=== PATIENT | female | born 1985 | race African-American/Black ===

== ENCOUNTER 2017-08-30 08:39 | Day surgery (SDC) | payer OTHER ==
[2017-08-29 12:47] VITALS: BMI 29.7
[2017-08-30] MEDS ORDERED: ceFAZolin SODIUM 1 GM VIAL ONE (10:06)
[2017-08-30] MEDS ORDERED: MIDAZOLAM HCL 2 MG/2 ML SINGLE DOSE VIAL ONE ×2 (10:06→11:09)
[2017-08-30] MEDS ORDERED: PROPOFOL 20 ML ONE ×2 (10:06)
[2017-08-30] MEDS ORDERED: LIDOCAINE HCL/PF 2% SDV 5ML VIAL ONE (10:06)
[2017-08-30] MEDS ORDERED: ONDANSETRON 4 MG/2 ML VIAL IVPUSH PRN (10:24)
[2017-08-30] MEDS ORDERED: oxyCODONE HCL 5 MG TABLET PO PRN (10:24)
[2017-08-30] MEDS ORDERED: IBUPROFEN 800 MG/8 ML IJ IVPB PRN (10:24)
[2017-08-30] MEDS ORDERED: LACTATED RINGERS SOLUTION 1,000 ML IV SCH (10:30)
[2017-08-30] MEDS ORDERED: BUPIVACAINE HCL/PF 0.5% (5MG/ML) 10 ML VIAL ONE ×2 (10:52→12:03)
[2017-08-30] MEDS ORDERED: LIDOCAINE HCL 1%, 10 MG/ML (20ML VIAL) ONE (10:52)
[2017-08-30] MEDS ORDERED: ceFAZolin SODIUM 1 GM VIAL IVPB ONE (11:14)
[2017-08-30] MEDS ORDERED: LIDOCAINE HCL 1%, 10 MG/ML (20ML VIAL) NR ONE (11:23)
[2017-08-30] MEDS ORDERED: BUPIVACAINE HCL/PF 0.5% (5MG/ML) 10 ML VIAL IJ ONE ×2 (11:23→12:01)
[2017-08-30] MEDS ORDERED: DEXAMETHASONE SOD PHOSPHATE 4 MG/1 ML VIAL IM ONE (12:01)
[2017-08-30] MEDS ORDERED: TRIAMCINOLONE ACET 40MG/1ML VIAL ONE (12:03)
[2017-08-30] MEDS ORDERED: DEXAMETHASONE SOD PHOSPHATE 4 MG/1 ML VIAL ONE (12:03)
[2017-08-30 13:08] VITALS: TEMP 98.3
--- NOTE | 2017-08-30 13:24 | OP ---
DATE OF OPERATION: DATE OF DICTATION: 08/30/2017 PREOPERATIVE DIAGNOSIS: Left foot painful hammertoe, 4th and 5th digits. POSTOPERATIVE DIAGNOSIS: Left foot painful hammertoe, 4th and 5th digits. OPERATION: Arthroplasty of the left foot 4th digit and 5th digit at the proximal interphalangeal joints and postoperative injection. ANESTHESIA: Local with IV sedation. SURGEON: Miya Guido DPM ASSISTANTS: and , PGY3 HEMOSTASIS: Pneumatic ankle tourniquet, 29 minutes. ESTIMATED BLOOD LOSS: Less than 3 mL. MATERIAL: Vicryl 3-0 and 4-0 nylon. PATHOLOGY: Bone and soft tissues, left foot. PREOPERATIVE INJECTION: A mix of 1:1 of 1% lidocaine plain and 0.5 Marcaine plain, 12 mL. POSTOPERATIVE INJECTION: A mix of 4:1 of 0.5% Marcaine and 4 mg of dexamethasone, 7 mL. OPERATIVE PROCEDURE: The patient was brought to the operating room and placed on the operating table in the supine position. A pneumatic ankle tourniquet was then placed on the patient's left ankle. Following IV sedation, local anesthesia was obtained utilizing 12 mL of a 1:1 mixture of 1% lidocaine plain and 0.5% Marcaine plain. The foot was then scrubbed, prepped and draped in the usual aseptic manner. An Esmarch bandage was then utilized to exsanguinate the patient's left foot and the tourniquet was inflated. Attention was then directed to the 4th digit where approximately a 3-cm curvilinear longitudinal incision was made over the lateral aspect of the proximal interphalangeal joint of the 4th digit and the incision was then deepened through the subcutaneous tissue with care to retract all neurovascular structures and all bleeders were cauterized and ligated. Transverse tenotomy and capsulotomy were performed to the proximal interphalangeal joint of the 4th digit. The head of the proximal interphalangeal joint was then freed from its soft tissue attachment. A sagittal saw was then used to cut the head of the proximal phalanx and then passed from the operating room table. Attention was then directed to the 5th digit where approximately a 2-cm curvilinear oblique incision was made from the proximal lateral to the distal medial over the dorsal aspect of the proximal interphalangeal joint of the 5th digit. The incision was then deepened through the subcutaneous tissue with care to retract all neurovascular structures and all bleeders were cauterized and ligated. Transverse tenotomy and capsulotomy were performed to the proximal interphalangeal joint of the 5th digit. The head of the proximal phalanx was then freed of its soft tissue attachment. A sagittal saw was then used to cut the head of the proximal phalanx and then passed from the operating room table. The surgical sites were then flushed with a copious amount of sterile saline and the extensor tendon of the 4th digit and the 5th digit and the subcutaneous tissue were then approximated with 3-0 Vicryl. Skin was approximated with 4-0 nylon. Upon the completion of the procedure, a total of 7 mL of the mix 4:1 of 0.5% Marcaine plain and 4 mg of dexamethasone was infiltrated around the surgical site. The incision was dressed with Betadine-soaked Adaptic and covered with a sterile compressive dressing such as 4 x 4 and Kerlix. The tourniquet was then deflated. Immediate hyperemia returned to all digits. The foot was then Navarro wrapped. The patient tolerated the procedure well and was transferred to the recovery room with all vital signs stable and vascular status intact to the feet. Following postoperative monitoring, the patient will be discharged and given instruction and prescriptions which were discussed prior to the surgery. SAMMY [id number]
[2017-08-30 14:06] VITALS: BP 133/79; PULSE 96
--- NOTE | 2017-08-31 15:39 | PATH ---
Surgical Pathology Report Patient Name: LAKESHA CRANDALL Med. Rec. #: [id number] /Age/Gender: 1985 (Age: 32) / F Account: [id number] Location: [facility] Taken: 08/30/2017 Received: 08/30/2017 Reported: 08/31/2017 Physicians: Miya Guido DPM Specimen(s) Received A: SKIN OF 4TH /5TH TOES LEFT FOOT B: BONE OF 4TH/5TH TOES LEFT FOOT Clinical History Hammer toe, fourth fifth toes, left foot Final Diagnosis A. SKIN, LEFT FOURTH AND FIFTH TOES, EXCISION: BENIGN SKIN WITH HYPERKERATOSIS AND PARAKERATOSIS. B. BONE, LEFT FOURTH AND FIFTH TOES, EXCISION: UNREMARKABLE BONE WITH ATTACHED ARTICULAR CARTILAGE. Electronically Signed Huber Balbuena M.D. Gross Description A. Received in formalin, labeled "skin of fourth and fifth toes left foot" are 3 lobo skin ellipses measuring 1.2 x 0.5 x 0.4, 1.2 x 0.7 x 0.4, and 1.2 x 0.2 x 0.2 cm. No surface lesions are identified. [employer] sections of the specimens are submitted in one cassette. B. Received in formalin, labeled "bone fourth and fifth toes left foot" are 2 white-lobo irregular portions of bone 1.3 x 0.7 x 0.5 and 1 x 0.5 x 0.4 cm. [employer] sections are submitted in one cassette after decalcification. deyanira/08/30/2017
== END 2017-08-30 14:11 | disposition home or self-care (01) ==
LOC: JASU-SURG 08:39
PROVIDERS: ATTEND Podiatrist Foot Surgery
PROC: 0SRP0JZ Replacement of Right Toe Phalangeal Joint with Synthetic Substitute, Open Approach (ICD-10-PCS; principal; 2017-08-30 09:00)
DX: M20.41 Other hammer toe(s) (acquired), right foot (principal)
CPT/HCPCS: 73630-TC-LT; 84703; 88304-TC; 88311-TC; 94760